=== PATIENT | female | born 2000 | race Caucasian/White ===

== ENCOUNTER 2022-09-22 12:15 | Emergency (ER) | payer BC ==
[2022-09-22] MEDS ORDERED: Albuterol Sulfate 2.5 mg/3 ml Neb ONE (12:27)
[2022-09-22 13:49] LABS: SARS-CoV-2 NAA Rapid Test Not Detected (NotDetected)
== END 2022-09-22 15:18 | disposition home or self-care (01) ==
LOC: CSHERS 12:15
DX: J45.909 Unspecified asthma, uncomplicated (principal); Z20.822 Contact with and (suspected) exposure to COVID-19
CPT/HCPCS: 71045; 94644; 94760; J7611